=== PATIENT | male | born 1995 | race African-American/Black ===

== ENCOUNTER 2017-09-24 06:09 | Emergency (ER) | END 2017-09-24 07:36 | disposition home or self-care (01) ==

== ENCOUNTER 2017-12-29 09:43 | Emergency (ER) | END 2017-12-29 11:03 | disposition home or self-care (01) ==

== ENCOUNTER 2017-12-31 11:07 | Emergency (ER) | END 2017-12-31 13:25 | disposition home or self-care (01) ==

== ENCOUNTER 2018-01-02 13:24 | Emergency (ER) | END 2018-01-02 13:54 | disposition home or self-care (01) ==